=== PATIENT | male | born 1955 | race Two or more races ===

== ENCOUNTER → 2022-09-30 | Outpatient (CLI) | payer MEDICARE ==
--- NOTE | 2022-09-30 12:05 | CT ---
EXAMINATION TYPE: CT brain wo con DATE OF EXAM: 09/30/2022 HISTORY: Swelling, lump to Lt side of head, post hitting back of head on bed CT DLP: 945.5 mGycm. Automated Exposure Control for Dose Reduction was Utilized. TECHNIQUE: CT scan of the head is performed without contrast. COMPARISON: MRI brain 2016. FINDINGS: There is no acute intracranial hemorrhage or midline shift identified. There is mild diff use ventricular and sulcal prominence consistent with diffuse age-related cerebral atrophy. There is mild low-attenuation in the periventricular white matter consistent with chronic small vessel ischem ic change. The globes are intact and the visualized sinuses are clear. Cerumen in the deep right ext ra auditory canal is present. There is asymmetric heterogeneous tissue over the left scalp causing fo leticia bulging with focal small to moderate size acute hematoma measuring approximately 3.4 x 3.1 cm axi al image 16. This was present on the 2016 MRI and should be correlated clinically. There is focal scrap handler niectomy defect over the left cerebellum similar to prior study axial image 7. There is also loss of bone over the left temporal region extending into the external auditory canal redemonstrated. Inferio r extent of lesion not included in field of view on this study. IMPRESSION: No acute intracranial hemorrhage or midline shift. There is mild diffuse age-related ce rebral atrophy and chronic small vessel ischemic change redemonstrated. Left temporal subcutaneous s oft tissue lesion only partially imaged and was present on 2016 MRI. Etiology uncertain but should be correlated clinically. There is now focal small to moderate size acute left-sided scalp hematoma on current study.
== END | disposition home or self-care (01) ==
LOC: RADCTMAIN 11:08
PROVIDERS: ATTEND Internal Medicine
DX: I67.82 Cerebral ischemia (principal); G31.9 Degenerative disease of nervous system, unspecified; S00.03XA Contusion of scalp, initial encounter; W22.8XXA Striking against or struck by other objects, initial encounter
CPT/HCPCS: 70450